=== PATIENT | male | born 1970 | race Caucasian/White ===

== ENCOUNTER 2018-08-31 15:59 | Emergency (ER) | payer OTHER ==
[2018-08-31 16:18] VITALS: BP 115/75
--- NOTE | 2018-08-31 16:42 | UC ---
Respiratory Complaint HPI - HPI Summary HPI Summary: 48 y/o male PMHX of DM type II presents to the urgent care c/o sinus congestion w/ sinus pain and yellowish nasal discharge since Friday08/27/2018. Pt reports cough has progressively worsen and yesterday, he developed mild wheezing and this morning his chest feels tight. He has been taking OTC medication to alleviate symptoms w/o any improvement. Pt denies fever, but he has had chills. Sinus GRAYSON /10 since this morning. Pt denies fever, SOB, chest pain, abdominal pain, N/V/d. - History of Current Complaint Chief Complaint: UCRespiratory Stated Complaint: SINUS AND CHEST CONGESTION Time Seen by Provider: 08/31/18 16:41 Hx Obtained From: Patient Onset/Duration: Gradual Onset, Lasting Weeks - 6 days, Still Present, Worse Since - yesterday Timing: Intermittent Episodes Severity Initially: Mild Severity Currently: Moderate Pain Intensity: 4 - GRAYSON Pain Scale Used: 0-10 Numeric Character: Cough: Productive, Sputum Description: - yellowish Aggravating Factors: Recumbent Position Alleviating Factors: OTC Meds Associated Signs And Symptoms: Positive: Chills, Wheezing - mild last night, URI , Nasal Congestion, Sinus Discomfort. Negative: Fever - Risk Factors Pulmonary Embolism Risk Factors: Negative Cardiac Risk Factors: Negative Pseudomonas Risk Factors: Negative Tuberculosis Risk Factors: Negative - Allergies/Home Medications Allergies/Adverse Reactions: Allergies Allergy/AdvReac Type Severity Reaction Status Date / Time No Known Allergies Allergy Verified 08/31/18 16:17 Home Medications: Home Medications Acetaminophen [Mapap] 1,000 mg PO ONCE PRN 08/31/18 [History Confirmed 08/31/18] Echinacea 1 tab PO DAILY PRN 08/31/18 [History Confirmed 08/31/18] Fenugreek Seed Extract [Fenugreek] 1 tab PO DAILY PRN 08/31/18 [History Confirmed 08/31/18] PMH/Surg Hx/FS Hx/Imm Hx Previously Healthy: Yes Endocrine History: Diabetes - Surgical History Surgical History: None - Family History Known Family History: Positive: Diabetes - Social History Occupation: Employed Full-time Lives: With Family Alcohol Use: None Substance Use Type: None Smoking Status (MU): Never Smoked Tobacco Review of Systems All Other Systems Reviewed And Are Negative: Yes Constitutional: Positive: Chills Skin: Positive: Negative Eyes: Positive: Negative ENT: Positive: Sore Throat - mild, Nasal Discharge - yellowish, Sinus Congestion , Sinus Pain/Tenderness, Other - PND Respiratory: Positive: Cough - productive w/ yellowish phlegm, Other - mild wheezing since last night Cardiovascular: Positive: Negative Gastrointestinal: Positive: Negative Genitourinary: Positive: Negative Motor: Positive: Negative Neurovascular: Positive: Negative Musculoskeletal: Positive: Negative Neurological: Positive: Negative Psychological: Positive: Negative Is Patient Immunocompromised?: No Physical Exam - Summary Physical Exam Summary: Vital Signs Reviewed: Yes General: well developed, well nourished male sitting in the examining table w/o any apparent distress Eyes: Positive: Conjunctiva Clear - PERRLA, EOMI, fundi grossly normal ENT: Positive: Normal ENT inspection, Hearing grossly normal, Pharynx normal, Nasal congestion - edematous and erythematous nasal mucosa, Nasal drainage - yellowish drainage, TMs normal. Negative: Tonsillar swelling, Tonsillar exudate Neck: Positive: Supple, Nontender, No Lymphadenopathy Respiratory: no orthopnea or dyspnea. Able to speak in full sentences, no retractions or accessory muscle use, no tripod position, stridor, or head bobbing. Positive breath sounds bilaterally. diffuse scattered rhonchi w/ mild wheezing on b/L lungs, no crackles or rales. Cardiovascular: Positive: RRR, No Murmur, Pulses Normal, Brisk Capillary Refill Abdomen Description: Positive: Nontender, No Organomegaly, Soft. Negative: CVA Tenderness (R), CVA Tenderness (L) Bowel Sounds: Positive: Present Musculoskeletal Exam: Normal Musculoskeletal: Positive: Strength Intact, ROM Intact, No Edema Neurological Exam: Normal Psychological Exam: Normal Skin Exam: Normal Triage Information Reviewed: Yes Vital Signs: Initial Vital Signs Temp 97.4 F 08/31/18 16:14 Pulse 62 08/31/18 16:14 Resp 18 08/31/18 16:14 BP 115/75 08/31/18 16:14 Pulse Ox 96 08/31/18 16:14 Respiratory Course/Dx - Course Course Of Treatment: 48 y/o male PMHX of DM type II presents to the urgent care c/o sinus congestion w/ sinus pain and yellowish nasal discharge since Friday08/27/2018. Pt reports cough has progressively worsen and yesterday, he developed mild wheezing and this morning his chest feels tight. He has been taking OTC medication to alleviate symptoms w/o any improvement. Pt denies fever, but he has had chills. Sinus GRAYSON 09/07 since this morning. Pt denies fever, SOB, chest pain, abdominal pain, N/V/d. Hx obtained. Pt w/ scattered rhinchi and mild wheezes on posterior b/l lungs on examination. O2Sat:96%. Pt given Prednisone PO and Duoneb Treatment to alleviate symptoms. Pt tolerated well treatment and lungs improved,and wheezing resolved. Patient prescribed doxycycline PO, Prednisone taper dose, Albuterol neb. and Tessalon Tabs to alleviate symptoms as directed below. The patient was recommended to increase fluid intake. Take medications as recommended. Pt advised to returned to the clinic or f/u w/ her PCP if symptoms do not improve. All D/C instructions explained. Patient understood and agree w/ plan of care. Pt left clinic hemodynamically stable , A& OX3 - Differential Dx/Diagnosis Differential Diagnosis/HQI/PQRI: Asthma, Bronchitis, Influenza, Lower Resp Infection - pneumonia, Sinusitis, Other Discharge - Sign-Out/Discharge Documenting (check all that apply): Patient Departure - d/c home All imaging exams completed and their final reports reviewed: Yes - Discharge Plan Condition: Stable Disposition: HOME Prescriptions: Albuterol HFA INHALER* [Ventolin HFA Inhaler*] 1 - 2 puff INH Q6H PRN #1 mdi PRN Reason: Wheezing Benzonatate CAP* [Tessalon 100 MG CAP*] 100 mg PO TID PRN #21 cap PRN Reason: Cough DOXYcycline CAP(*) [DOXYcycline 100MG CAP(*)] 100 mg PO BID #20 cap Patient Education Materials: Acute Bronchitis (ED), Wheezing (ED) Forms: *Work Release Referrals: Rob Mcnally MD [Primary Care Provider] - 3 Days Additional Instructions: 1-Please take full course of antibiotic to avoid resistance. Take yogurt w/ probiotics or Culturelle to protect your GI system 2-Take Tessalon PO tabs as directed and use the albuterol inhaler to alleviate cough. Increase fluid intake, rest and eat well. 3- If symptoms do not improve or worsen or your develop SOB with fever and severe wheezing please go immediately to the ER further evaluation and treatment. 4- F/u with your PCP in 3 days for further evaluation and treatment, you may be developing Asthma or COPD - Billing Disposition and Condition Condition: STABLE Disposition: Home
[2018-08-31] MEDS ORDERED: Albuterol/Ipratropium NEB.SOL* Albuterol 2.5 MG/Ipratropium 0.5 MG 3 ML INH ONE (16:59)
== END 2018-08-31 18:27 | disposition home or self-care (01) ==
LOC: UCEAST 15:59
DX: J18.9 Pneumonia, unspecified organism (principal); J32.9 Chronic sinusitis, unspecified; E11.9 Type 2 diabetes mellitus without complications
CPT/HCPCS: 71046; 99202; A9270-GY; G0463

== ENCOUNTER 2019-05-19 08:07 | Emergency (ER) | payer OTHER ==
[2019-05-19 08:23] VITALS: BP 123/78
[2019-05-19 08:46] LABS: Influenza A Molecular Negative (Negative); Influenza B Molecular Negative (Negative)
--- NOTE | 2019-05-19 08:51 | UC ---
FLU HPI - HPI Summary HPI Summary: Pt presents to reporting illness since last fri - states started at work - felt tired and body ache . Progressed to develop cough, congestion, sinus pressure, PNd. tactile fevers, cough green sputuma mild SOB with cough no travel medications as entered in EMR by itz ABEBE reviewed this visit - History of Current Complaint Chief Complaint: UCGeneralIllness Stated Complaint: FLU LIKE SYMPTOMS Time Seen by Provider: 05/19/19 08:50 Hx Obtained From: Patient Onset/Duration: Gradual Onset Severity Currently: Mild Severity Initially: Mild Pain Intensity: 0 - Allergy/Home Medications Allergies/Adverse Reactions: Allergies Allergy/AdvReac Type Severity Reaction Status Date / Time No Known Allergies Allergy Verified 05/19/19 08:23 Home Medications: Home Medications Acetaminophen [Mapap] 1,000 mg PO ONCE PRN 08/31/18 [History Confirmed 05/19/19] Echinacea 1 tab PO DAILY PRN 08/31/18 [History Confirmed 05/19/19] Fenugreek Seed Extract [Fenugreek] 1 tab PO DAILY PRN 08/31/18 [History Confirmed 05/19/19] Amoxicillin/Clavulanate TAB* [Augmentin TAB 875*] 875 mg PO BID #20 tab [Rx] Fluticasone NASAL SPRAY 50MCG* [Flonase NASAL SPRAY 50MCG*] 1 spray BOTH NARES DAILY #1 btl 05/19/19 [Rx] PMH/Surg Hx/FS Hx/Imm Hx Previously Healthy: Yes - Surgical History Surgical History: None - Family History Known Family History: Positive: Diabetes, Non-Contributory - Social History Occupation: Employed Full-time Alcohol Use: None Substance Use Type: None Smoking Status (MU): Never Smoked Tobacco Review of Systems All Other Systems Reviewed And Are Negative: Yes Constitutional: Positive: Fatigue Skin: Positive: Negative ENT: Positive: Sore Throat, Ear Ache, Nasal Discharge, Sinus Congestion Respiratory: Positive: Shortness Of Breath - with coughing, Cough Cardiovascular: Positive: Negative Gastrointestinal: Positive: Nausea Physical Exam - Summary Physical Exam Summary: Vital Signs Reviewed: Yes A+Ox3, tired appearing, congested Eyes: Conjunctiva Clear, CHIOMA. EOM intact and full ENT: Hearing grossly normal TM x 2 clear, turbinates inflammed and boggy, + PND , + TTP max sinuss R>L mmoist, uvula midline, no exudate, mild erythema Neck: Positive: Supple Respiratory: Positive: No respiratory distress, No accessory muscle use + coarse cough, few scattered wheeze Cardiovascular: RRR nl s1, s2 no m/r CBT <2 sec abd soft + BS nt/nd no guarding, no distension Musculoskeletal Exam: WIN x 4 without difficulty Strength Intact, ROM Intact Neurological: Positive: Alert, + sensation throughout Psychological: Positive: Normal Response To farmworker vegetable Skin: Positive: no rash, no ecchymosis Triage Information Reviewed: Yes Vital Signs: Initial Vital Signs Temp 97.6 F 05/19/19 08:18 Pulse 84 05/19/19 08:18 Resp 18 05/19/19 08:18 BP 123/78 05/19/19 08:18 Pulse Ox 96 05/19/19 08:18 Flu Course/Dx - Course Course Of Treatment: Pt with progressive congestion, sore throat, cough x several days vitals reviewed pt exam c/w rhonosinusitis congested, cough, non toxic will check flu. strep humified aire secretion precatuion motrin/apap OTC meds flonase abx if sx persist return precaution - Differential Dx/Diagnosis Provider Diagnosis: Rhinosinusitis, Bronchitis Discharge ED - Sign-Out/Discharge Documenting (check all that apply): Patient Departure All imaging exams completed and their final reports reviewed: No Studies - Discharge Plan Condition: Stable Disposition: HOME Prescriptions: Amoxicillin/Clavulanate TAB* [Augmentin TAB 875*] 875 mg PO BID #20 tab Fluticasone NASAL SPRAY 50MCG* [Flonase NASAL SPRAY 50MCG*] 1 spray BOTH NARES DAILY #1 btl Patient Education Materials: Pharyngitis (ED), Rhinosinusitis (ED) Forms: *Gen. Provider Communication, *Work Release Referrals: Rob Mcnally MD [Primary Care Provider] - Additional Instructions: - Stay well hydrated. Drink plenty of non-alcoholic, non-caffinated beverages. - take antibiotics and use nasal spray as instructed - Alternate ibuprofen (Advil, Motrin) 600mg and Tylenol every 3 hours for pain or fever. Take with food. Do NOT take for more than 4-5 days. - These infections are spread by secretions - do NOT share eating or drinking utensils - clean items you share with other people such as cell phones, computer mouse, TV remote, computer tablets,etc. Once you have been on antibiotics for 2 days, start to feel better, change your toothbrush and your pillowcase. - get plenty of restful sleep - humidify the air in the room where you sleep - boil water, run a hot steam shower, vaporizer, cups of water by heat register - okay to take over the counter decongestant and cough medication - contact your doctor or return with questions or concerns - Billing Disposition and Condition Condition: STABLE Disposition: Home
== END 2019-05-19 10:15 | disposition home or self-care (01) ==
LOC: UCEAST 08:07
DX: R05 Cough (principal); J32.9 Chronic sinusitis, unspecified; J40 Bronchitis, not specified as acute or chronic
CPT/HCPCS: 87651; 99212; G0463